=== PATIENT | female | born 1985 | race Caucasian/White ===

== ENCOUNTER 2018-01-28 19:27 | Emergency (ER) | payer OTHER ==
[~2018-01-28] VITALS: Ht 157.5 cm; Wt 98.3 kg
--- NOTE | 2018-01-28 19:33 | ED.ADGEN ---
Past History Past Medical History: Gallstones, Other Adult General Chief Complaint Chief Complaint " ... [place] here [place].. [place]... we are from [place]... but I picked up something.. Nausea and Vomiting and Diarrhea. ...";' HPI HPI Patient is a 32 year old female who presents with above hx and complaints of nausea , diarrhea and vomiting. No one else in the family green party is currently sick. No specific ill contacts. Normally healthy. Patient has had a previous hysterectomy. Patient has had 4 episodes of vomiting this afternoon and 2 episodes of diarrhea. Patient has no history immunosuppression. Review of Systems Review of Systems Constitutional: Subjective fever or chills [] Eyes: Denies change in visual acuity, redness, or eye pain [] HENT: Denies nasal congestion or sore throat [] Respiratory: Denies cough or shortness of breath [] Cardiovascular: No additional information not addressed in HPI [] GI: History of abdominal pain, nausea, vomiting, and diarrhea [] : Denies dysuria or hematuria [] Musculoskeletal: Denies back pain or joint pain [] Integument: Denies rash or skin lesions [] Neurologic: Denies headache, focal weakness or sensory changes [] Endocrine: Denies polyuria or polydipsia [] All other systems were reviewed and found to be within normal limits, except as documented in this note. Family History Family History Noncontributory Current Medications Current Medications Current Medications Medications (Trade) Dose Ordered Sig/Yeimi Start Time Stop Time Status Last Admin Dose Admin Diphenhydramine HCl (Benadryl) 50 mg 1X ONCE 01/28/18 20:30 01/28/18 20:31 DC 01/28/18 20:31 50 MG Famotidine (Pepcid Vial) 20 mg 1X ONCE 01/28/18 20:30 01/28/18 20:31 DC 01/28/18 20:30 20 MG Ketorolac Tromethamine (Toradol) 30 mg 1X ONCE 01/28/18 20:30 01/28/18 20:31 DC 01/28/18 20:32 30 MG Lactated Ringer's 1,000 ml @ 1,000 mls/hr Q1H 01/28/18 20:30 01/28/18 21:29 DC 01/28/18 20:33 1,000 MLS/HR Ondansetron HCl (Zofran Odt) 4 mg 1X ONCE 01/28/18 20:15 01/28/18 20:16 DC 01/28/18 20:33 4 MG Ondansetron HCl (Zofran) 8 mg 1X ONCE 01/28/18 20:30 01/28/18 20:31 DC Promethazine HCl (Phenergan Im) 25 mg 1X ONCE 01/28/18 20:45 01/28/18 20:46 DC 01/28/18 20:36 25 MG Promethazine HCl (Phenergan) 25 mg STK-MED ONCE 01/28/18 20:28 01/28/18 20:29 DC Allergies Allergies Allergies Coded Allergies Type Severity Reaction Last Updated Verified azithromycin Allergy Unknown 01/28/18 Yes Physical Exam Physical Exam Constitutional: Moderately acute distress, non-toxic appearance. [] HENT: Normocephalic, atraumatic, bilateral external ears normal, oropharynx dry , no oral exudates, nose normal. [] Eyes: PERRLA, EOMI, conjunctiva normal, no discharge. [] Neck: Normal range of motion, no tenderness, supple, no stridor. [] Cardiovascular: Tachycardia Heart rate regular rhythm, no murmur [] Lungs & Thorax: Bilateral breath sounds equal at apexes auscultation [] Abdomen: Bowel sounds hyperactive , soft, generalized tenderness, no masses, no pulsatile masses. Old surgery scar. Tympanic distention Skin: Warm, dry, no erythema, no rash. [] Back: No tenderness, no CVA tenderness. [] Extremities: No tenderness, no cyanosis, no clubbing, ROM intact, no edema. Scar left ankle Neurologic: Alert and oriented X 3, normal motor function, normal sensory function, no focal deficits noted. [] Psychologic: Affect anxious, judgement normal, mood normal. [] Current Patient Data Lab Results Laboratory Tests Test 01/28/18 20:05 01/28/18 21:22 01/28/18 21:24 White Blood Count 20.7 x10^3/uL (4.0-11.0) H Red Blood Count 4.52 x10^6/uL (3.50-5.40) Hemoglobin 12.6 g/dL (12.0-15.5) Hematocrit 38.4 % (36.0-47.0) Mean Corpuscular Volume 85 fL (79-100) Mean Corpuscular Hemoglobin 28 pg (25-35) Mean Corpuscular Hemoglobin Concent 33 g/dL (31-37) Red Cell Distribution Width 13.8 % (11.5-14.5) Platelet Count 385 x10^3/uL (140-400) Neutrophils (%) (Auto) 90 % (31-73) H Lymphocytes (%) (Auto) 4 % (24-48) L Monocytes (%) (Auto) 6 % (0-9) Eosinophils (%) (Auto) 0 % (0-3) Basophils (%) (Auto) 0 % (0-3) Neutrophils # (Auto) 18.6 x10^3uL (1.8-7.7) H Lymphocytes # (Auto) 0.8 x10^3/uL (1.0-4.8) L Monocytes # (Auto) 1.2 x10^3/uL (0.0-1.1) H Eosinophils # (Auto) 0.0 x10^3/uL (0.0-0.7) Basophils # (Auto) 0.0 x10^3/uL (0.0-0.2) Segmented Neutrophils % 92 % (35-66) H Lymphocytes % 2 % (24-48) L Atypical Lymphocytes % (Manual) 2 % (0-0) H Monocytes % 3 % (0-10) Eosinophils % 1 % (0-5) Platelet Estimate Adequate (ADEQUATE) Maternal Serum HCG Beta Subunit < 1 mIU/mL (0-6) Sodium Level 144 mmol/L (136-145) Potassium Level 3.6 mmol/L (3.5-5.1) Chloride Level 109 mmol/L (98-107) H Carbon Dioxide Level 21 mmol/L (21-32) Anion Gap 14 (6-14) Blood Urea Nitrogen 12 mg/dL (7-20) Creatinine 0.8 mg/dL (0.6-1.0) Estimated GFR (Cockcroft-Gault) 83.7 Glucose Level 109 mg/dL (70-99) H Calcium Level 9.1 mg/dL (8.5-10.1) Total Bilirubin 0.3 mg/dL (0.2-1.0) Direct Bilirubin 0.1 mg/dL (0.0-0.2) Aspartate Amino Transferase (AST) 19 U/L (15-37) Alanine Aminotransferase (ALT) 32 U/L (14-59) Alkaline Phosphatase 77 U/L (46-116) Troponin I Quantitative < 0.017 ng/mL (0-0.055) Total Protein 7.6 g/dL (6.4-8.2) Albumin 3.8 g/dL (3.4-5.0) Lipase 81 U/L (73-393) Urine Collection Type Unknown Urine Color Yellow Urine Clarity Hazy Urine pH 5.0 Urine Specific [employer] 1.025 Urine Protein Trace (NEG-TRACE) Urine Glucose (UA) Neg mg/dL (NEG) Urine Ketones (Stick) Neg mg/dL (NEG) Urine Blood Trace (NEG) Urine Nitrite Neg (NEG) Urine Bilirubin Neg (NEG) Urine Urobilinogen Dipstick 0.2 mg/dL (0.2 mg/dL) Urine Leukocyte Esterase Neg (NEG) Urine RBC Occ /HPF (0-2) Urine WBC 1-4 /HPF (0-4) Urine Squamous Epithelial Cells Mod /LPF Urine Bacteria Few /HPF (0-FEW) Urine Mucus Mod /LPF Urine Opiates Screen Neg (NEG) Urine Methadone Screen Neg (NEG) Urine Barbiturates Neg (NEG) Urine Phencyclidine Screen Neg (NEG) Urine Amphetamine/Methamphetamine Neg (NEG) Urine Benzodiazepines Screen Neg (NEG) Urine Cocaine Screen Neg (NEG) Urine Cannabinoids Screen Neg (NEG) Urine Ethyl Alcohol Neg (NEG) EKG EKG [] Radiology/Procedures Radiology/Procedures My interpretation of Xray- abd. shows no acute cardiopulmonary findings. Has clips from previous gallbladder surgery. Does have findings of recently ingested calcium or Pepto-Bismol tabs. Nonspecific bowel gas pattern. No free air under the diaphragm.[] Course & Med Decision Making Course & Med Decision Making Pertinent Labs and Imaging studies reviewed. (See chart for details) Clear fluid diet only x 48 hrs. No solids or milk products. x 48 hrs. Phenergan 25 up 4 x day with benadryl for nausea and vomiting. Tylenol and Ibuprofen for pain and fever. Vicoprofen for marked discomfort. Zantac 150 twice a day x 10 days. May use over the counter pepto bismal. . Return if any concerns. At discharge patient reportedly marked relief of pain. Patient follow-up quadrant pending labs or cultures. [] Final Impression Final Impression 1. Nausea vomiting diarrhea-gastroenteritis 2. Leukocytosis 3. Viral Syndrome Problems: Dragon Disclaimer Dragon Disclaimer This electronic medical record was generated, in whole or in part, using a voice recognition dictation system. PAT WATTERS MD Jan 28, 2018 19:33
[2018-01-28] MEDS ORDERED: ONDANSETRON ODT 4 MG TAB.RAPDIS ONE (19:46)
[2018-01-28] MEDS ORDERED: ONDANSETRON ODT 4 MG TAB.RAPDIS PO ONE (20:15)
[2018-01-28] MEDS: IV RINGERS SOLUTION,LACTATED 1,000 ML IV SCH ×2 (20:24→20:33)
[2018-01-28] MEDS ORDERED: PROMETHAZINE 25 MG/ML VIAL IV ONE (20:28)
[2018-01-28] MEDS ORDERED: ONDANSETRON PF 4 MG/2 ML VIAL. IV ONE (20:30)
[2018-01-28] MEDS ORDERED: diphenhydrAMINE 50 MG/ML VIAL IVP ONE (20:30)
[2018-01-28] MEDS ORDERED: FAMOTIDINE 20 MG/2 ML VIAL IVP ONE (20:30)
[2018-01-28] MEDS ORDERED: KETOROLAC 30 MG/ML VIAL. IV ONE (20:30)
[2018-01-28 20:34] LABS: BASO % 0 % (0-3); EOS % 0 % (0-3); HEMATOCRIT 38.4 % (36.0-47.0); HEMOGLOBIN 12.6 g/dL (12.0-15.5); LYMPH # 0.8 x10^3/uL (1.0-4.8); LYMPH % 4 % (24-48); MEAN CORPUSCULAR HEMOGLOBIN 28 pg (25-35); MEAN CORPUSCULAR HGB CONC 33 g/dL (31-37); MEAN CORPUSCULAR VOLUME 85 fL (79-100); MONO # 1.2 x10^3/uL (0.0-1.1); MONO % 6 % (0-9); NEUT # 18.6 x10^3uL (1.8-7.7); NEUT % 90 % (31-73); PLATELET COUNT 385 x10^3/uL (140-400); RED BLOOD COUNT 4.52 x10^6/uL (3.50-5.40); RED CELL DISTRIBUTION WIDTH 13.8 % (11.5-14.5); WHITE BLOOD COUNT 20.7 x10^3/uL (4.0-11.0)
[2018-01-28 20:44] LABS: ALBUMIN 3.8 g/dL (3.4-5.0); CALCIUM 9.1 mg/dL (8.5-10.1); CREATININE 0.8 mg/dL (0.6-1.0); DIRECT BILIRUBIN 0.1 mg/dL (0.0-0.2); GFR 83.7; POTASSIUM 3.6 mmol/L (3.5-5.1); TOTAL BILIRUBIN 0.3 mg/dL (0.2-1.0); TOTAL PROTEIN 7.6 g/dL (6.4-8.2)
[2018-01-28] MEDS ORDERED: PROMETHAZINE IM 25 MG/ML VIAL IM ONE (20:45)
[2018-01-28 21:11] LABS: % EOS 1 % (0-5); % LYMPHS 2 % (24-48); % MONOS 3 % (0-10); % SEGS 92 % (35-66)
[2018-01-28 21:28] LABS: PLT ESTIMATE ADEQUATE (ADEQUATE)
[2018-01-28 21:33] LABS: % ATYL 2 % (0-0)
[2018-01-28] MEDS ORDERED: PROM50SU6 RC (21:51)
[2018-01-28] MEDS ORDERED: HYDR-79 PO (21:51)
[2018-01-28 21:54] VITALS: BP 122/74
[2018-01-28 21:57] LABS: BARBITURATES NEG (NEG); BENZODIAZEPINES NEG (NEG); CANNABINOIDS NEG (NEG); COCAINE NEG (NEG); METHADONE NEG (NEG); OPIATES NEG (NEG); PHENCYCLIDINE NEG (NEG)
[2018-01-28 21:58] LABS: AMPHETAMINE/METHAMPHETAMINE NEG (NEG)
[2018-01-28 22:05] LABS: BILIRUBIN,URINE NEG (NEG); CLARITY,URINE HAZY; COLOR,URINE YELLOW; GLUCOSE,URINE NEG (NEG); NITRITE,URINE NEG (NEG); UROBILINOGEN,URINE 0.2 mg/dL (0.2 mg/dL)
[2018-01-28 22:06] LABS: BACTERIA,URINE FEW /HPF (0-FEW); RBC,URINE OCC /HPF (0-2); SQUAMOUS EPITHELIAL CELL,UR MOD /LPF
--- NOTE | 2018-01-29 08:20 | RAD ---
Acute abdomen series with chest, 3 views, 01/28/2018: History: Nausea, vomiting and cramping There is a small amount of gas in the GI tract without significant bowel distention. There are small scattered air-fluid levels. The findings suggest a mild ileus. No free air seen in the abdomen. There is a small amount of radiopaque material within the stomach. Surgical clips are present in the right upper quadrant. There is no evidence of organomegaly. The heart size is normal. The lungs are clear. There is no evidence of pleural fluid. IMPRESSION: Small scattered air-fluid levels GI tract suggesting a mild nonspecific ileus.
== END 2018-01-28 22:23 | disposition home or self-care (01) ==
LOC: ER 19:27
DX: K52.9 Noninfective gastroenteritis and colitis, unspecified (principal); D72.829 Elevated white blood cell count, unspecified; B34.9 Viral infection, unspecified; Z88.1 Allergy status to other antibiotic agents
CPT/HCPCS: 36415; 74022; 80048; 80076; 80307; 81001; 83690; 84484; 84702; 85007; 85025; 96361; 96372; 96374; 96375; 99285; J1200; J1885; J2550; J7120; Q0162; S0028; G0479